=== PATIENT | female | born 1960 | race Caucasian/White ===

== ENCOUNTER → 2016-10-14 | Outpatient (CLI) | payer OTHER ==
--- NOTE | 2016-10-14 11:46 | RAD ---
PROCEDURE MR of the left shoulder HISTORY Left shoulder pain for 1 month after injury. COMPARISON None TECHNIQUE Standard noncontrast images are obtained. FINDINGS Acromioclavicular joint is mildly degenerative. There are small undersurface osteophytes. Mild rotator cuff tendon thickening and signal compatible with tendinosis. No measurable rotator cuff tear. Trace subdeltoid bursal fluid. Tear of the posterosuperior labrum. There is deficiency of the anterosuperior labrum and a thick cord-like middle glenohumeral ligament, compatible with [place] complex, a normal variant. No significant joint effusion. Biceps tendon is intact. No bone lesion or acute fracture. No acute soft tissue findings. IMPRESSION 1. Rotator cuff tendinosis without evidence of a tear. 2. Posterosuperior labral tear. Electronically signed by: Cisco Delarosa MD (Oct 14, 2016 11:45:20)
== END | disposition home or self-care (01) ==
LOC: MRI 08:34
PROVIDERS: ATTEND Family Medicine
DX: S46.812D Strain of other muscles, fascia and tendons at shoulder and upper arm level, left arm, subsequent encounter (principal); M75.22 Bicipital tendinitis, left shoulder
CPT/HCPCS: 73221

== ENCOUNTER → 2016-12-12 | Outpatient (CLI) | payer OTHER ==
--- NOTE | 2016-12-12 14:12 | RAD ---
Examination: Ultrasound left approximately venous duplex History: History of left arm pain, swelling Comparison: None available Technique: Grayscale, color Doppler 2-D, spectral waveforms of the left upper extremity venous system was performed Findings: The visualized internal jugular vein, subclavian vein, axillary vein, brachial vein, basilic vein, radial vein, ulnar vein, cephalic vein are patent. Impression: No evidence of deep venous thrombosis identified in the left upper extremity venous system.
== END | disposition home or self-care (01) ==
LOC: US 11:45
PROVIDERS: ATTEND Orthopaedic Surgery Sports Medicine
DX: M79.602 Pain in left arm (principal); M79.89 Other specified soft tissue disorders
CPT/HCPCS: 93971

== ENCOUNTER → 2017-01-29 | Outpatient (CLI) | payer OTHER | END | disposition home or self-care (01) | LOC: LAB 11:22 | PROVIDERS: ATTEND Family Medicine | DX: F33.1 Major depressive disorder, recurrent, moderate (principal) | CPT/HCPCS: 36415; 84443 ==

== ENCOUNTER → 2017-03-10 | Outpatient (CLI) | payer OTHER ==
[2017-03-10 15:51] LABS: BILIRUBIN,URINE NEGATIVE (NEG); GLUCOSE,URINE NEGATIVE (NEG); NITRITE,URINE NEGATIVE (NEG); PROTEIN,URINE NEGATIVE (NEG-TRACE); UROBILINOGEN,URINE 0.2 mg/dL (0.2 mg/dL)
[2017-03-10 16:18] LABS: BACTERIA,URINE 0 /HPF (0-FEW); RBC,URINE >40 /HPF (0-2); SQUAMOUS EPITHELIAL CELL,UR OCC /LPF; WBC,URINE OCC /HPF (0-4)
== END | disposition home or self-care (01) ==
LOC: LAB 15:30
PROVIDERS: ATTEND Family Medicine
DX: R31.9 Hematuria, unspecified (principal)
CPT/HCPCS: 81001; 87086

== ENCOUNTER → 2017-03-12 | Outpatient (CLI) | payer OTHER ==
--- NOTE | 2017-03-12 09:21 | RAD ---
Abdominal ultrasound 03/12/2017 at 0734 hours Indication: Gross hematuria Comparison: None available Technique: Sonographic images of the abdomen were obtained utilizing grayscale and color Doppler. Findings: Liver is normal in echotexture without evidence for a focal mass lesion. Liver measures 13.4 cm. No intrahepatic or extrahepatic biliary ductal dilatation. On bile duct measures 3 mm. Gallbladder is surgically absent. The spleen measures 8.6 cm and is within normal limits. Visualized portions of the pancreas appear normal. Aorta and IVC are normal in appearance. The right kidney measures 10.0 x 4.2 x 3.8 cm. Left kidney measures 10.3 x 4.7 x 4.6 cm. No renal calculi are identified. No hydronephrosis. No contour deforming renal mass. Urinary bladder is within normal limits given degree of distention. Postvoid residual volume measures 19 CC. No free fluid is identified within the abdomen. Impression: 1. No renal calculi are identified. No evidence for obstructive uropathy. 2. Status post cholecystectomy without evidence for intrahepatic or extrahepatic biliary ductal dilatation.
== END | disposition home or self-care (01) ==
LOC: US 07:04
PROVIDERS: ATTEND Family Medicine
DX: R31.0 Gross hematuria (principal); Z90.49 Acquired absence of other specified parts of digestive tract
CPT/HCPCS: 76700

== ENCOUNTER → 2017-03-18 | Outpatient (CLI) | payer OTHER ==
[2017-03-18 10:43] LABS: BILIRUBIN,URINE NEGATIVE (NEG); GLUCOSE,URINE NEGATIVE (NEG); NITRITE,URINE NEGATIVE (NEG); PH,URINE 5.5; PROTEIN,URINE NEGATIVE (NEG-TRACE); UROBILINOGEN,URINE 0.2 mg/dL (0.2 mg/dL)
[2017-03-18 11:05] LABS: BACTERIA,URINE FEW /HPF (0-FEW); SQUAMOUS EPITHELIAL CELL,UR OCC /LPF
== END | disposition home or self-care (01) ==
LOC: LAB 10:21
PROVIDERS: ATTEND Family Medicine
DX: R31.0 Gross hematuria (principal)
CPT/HCPCS: 81001